=== PATIENT | male | born 1930 | race Two or more races ===

== ENCOUNTER → 2017-07-13 | Outpatient (CLI) | payer MEDICARE, OTHER ==
[~2017-07-13] MED LIST: ASPI81CH43; CLOP75TA28; ESOM40CA39; FEBU40TA; MELO-85; SODI650T
== END | disposition home or self-care (01) ==
LOC: Rad HDHVI 10:52
PROVIDERS: ATTEND Internal Medicine Cardiovascular Disease
DX: I35.1 Nonrheumatic aortic (valve) insufficiency (principal); I51.7 Cardiomegaly; I63.9 Cerebral infarction, unspecified; I49.5 Sick sinus syndrome
CPT/HCPCS: 93306

== ENCOUNTER → 2018-01-11 | Outpatient (CLI) | payer MEDICARE, OTHER ==
[~2018-01-11] MED LIST changes: -MELO-85; +MELO1TAB73
== END | disposition home or self-care (01) ==
LOC: Rad HDHVI 12:53
PROVIDERS: ATTEND Internal Medicine Cardiovascular Disease
DX: L97.519 Non-pressure chronic ulcer of other part of right foot with unspecified severity (principal); Z79.01 Long term (current) use of anticoagulants
CPT/HCPCS: 93926